=== PATIENT | male | born 1935 | race Caucasian/White ===

== ENCOUNTER 2018-08-29 13:59 | Emergency (ER) | payer MEDICARE ==
[2018-08-29 14:09] VITALS: BP 143/91
[2018-08-29] MEDS ORDERED: TETRACAINE 0.5% OPHTH DROPS 15 ML LEFTEYE STA (14:33)
[2018-08-29] MEDS ORDERED: TETRACAINE 0.5% OPHTH DROPS 4 ML LEFTEYE STA (14:38)
[2018-08-29] MEDS ORDERED: ERYTHROMYCIN OPHTH OINT 1 GM TUBE LEFTEYE STA (16:29)
--- NOTE | 2018-08-29 16:32 | ED Physician Documentation ---
PD HPI OPHTHO - Stated complaint Stated Complaint: LT EYE PX - Chief complaint Chief Complaint: Heent - History obtained from History obtained from: Patient, Family - History of Present Illness Timing - onset: How many hours ago (2) Timing - duration: Hours (2) Timing - details: Abrupt onset Severity Comments: moderate L eye redness, mild pain, aching Location: Left Quality / character: Aching. No: Itching, Burning, Throbbing Associated symptoms: Redness, Swelling. No: Tearing, Discharge, FB sensation, Photophobia, Double vision, Decreased vision, Loss of vision, Headache Contributing factors: Other (patient was hit in the left eye with a tree branch that he was cutting) Similar symptoms before: Other (has hx of macular degeneration, can barely see out of Left eye at baseline. Also hx of cataract surgery) Recently seen: Not recently seen - Treatment prior to arrival Treatment prior to arrival: none - Additional information Additional information: Dr. Santillan's office sent him to the ED Review of Systems Ten Systems: 10 systems reviewed and negative Constitutional: reports: Reviewed and negative Eyes: reports: Irritation. denies: Loss of vision, Decreased vision, Photophobia, Discharge Ears: reports: Reviewed and negative Nose: reports: Reviewed and negative Skin: reports: Reviewed and negative Neurologic: denies: Headache, Head injury, LOC PD PAST MEDICAL HISTORY - Past Medical History Past Medical History: Yes Cardiovascular: Hypertension Respiratory: None Endocrine/Autoimmune: HyPERthyroidism GI: None : None HEENT: Macular degeneration Psych: None Musculoskeletal: Other Derm: None - Past Surgical History Past Surgical History: Yes HEENT: Cataracts - Present Medications Home Medications: Ambulatory Orders Medication Instructions Recorded Confirmed RX: Levothyroxine Sodium 50 mcg PO QDAC 01/19/17 01/19/17 RX: Lisinopril/Hydrochlorothiazide 1 tab PO DAILY 01/19/17 01/19/17 [Lisinopril-Hctz 20-12.5 mg Tab] RX: Prednisone 5 mg PO QDBREAKFAST 01/19/17 01/19/17 RX: Sildenafil Citrate [Viagra] 100 mg PO PRN PRN 01/19/17 01/19/17 RX: Aspirin [Aspirin EC] 325 mg PO DAILY #10 tablet. 01/20/17 Areds Ii 08/29/18 Cholecalciferol (Vitamin D3) 1,000 unit PO 08/29/18 [Vitamin D3] RX: Ascorbic Acid [Vitamin C] 500 mg PO 08/29/18 RX: Atorvastatin [Lipitor] 40 mg PO QPM 08/29/18 RX: Flaxseed Oil 1,000 mg PO 08/29/18 08/29/18 - Allergies Allergies/Adverse Reactions: Allergies Allergy/AdvReac Type Severity Reaction Status Date / Time No Known Drug Allergies Allergy Verified 08/29/18 14:09 - Social History Does the pt smoke?: No Smoking Status: Never smoker Does the pt drink ETOH?: No Does the pt have substance abuse?: No PD ED PE NORMAL - Vitals Vital signs reviewed: Yes - General General: Alert and oriented X 3, No acute distress, Well developed/nourished - HEENT HEENT: Pharynx benign - Neck Neck: Supple, no meningeal sign - Cardiac Cardiac: RRR - Respiratory Respiratory: No respiratory distress - Abdomen Abdomen: Soft, Non tender, Non distended - Male Male : Deferred - Rectal Rectal: Deferred - Derm Derm: Normal color, Warm and dry, No rash - Extremities Extremities: No deformity - Neuro Neuro: Alert and oriented X 3, No motor deficit Eye Opening: Spontaneous Verbal: Oriented - Psych Psych: Normal mood, Normal affect PD ED PE EXPANDED - Eyes Eyes: EOMI, Left eye, Subconj hemorrhage (large), Corneal abrasion (mild left corneal abrasion, not central, inferior at 7 oclock on L eye ), Fluorescein uptake, Other (visual acuity normal in R eye, pt with severe macular degenration and poor baseline visual acuity in left eye thus unable to obtain reasonable acuity but pt can count fingers on the L and reports vision is baseline, IOP 18 bilaterally ). No: Eyelid injury, Eyelid swelling, Eyelid erythema Results - Vitals Vitals: Vital Signs - 24 hr 08/29/18 14:07 Temperature 36.8 C Heart Rate 84 Respiratory 18 Rate Blood Pressure 143/91 H O2 Saturation 96 Oxygen O2 Source Room air PD MEDICAL DECISION MAKING - ED course Complexity details: reviewed results, re-evaluated patient, considered differential, d/w patient, d/w family ED course: ddx - subconjunctival hemorrhage, corneal abrasion, globe rupture, iritis. 83 y/o M hit in L eye with tree branch. Has mild pain, large subconjunctival hemorrhage. Visual acuity difficult to obtain in L eye due to baseline severe macular degeneration but pt reports this is his normal. Negative seidels sign - no evidence of globe rupture IOp is 18 bilaterally with Schiotz. Injury happened too recently to have developed iritis. Small inferior corneal abrasion not central on L eye, given erythromycin. Pt to f/u with Dr. Santillan tomorrow in clinic. - Consults Consults: Consulted (name) (Dr. Santillan ophthalmology requested a tonopen measurement and visual acuity, will see pt in clinic tomorrow ) Departure - Departure Disposition: Home, Self Care Clinical Impression: Subconjunctival hemorrhage, Corneal abrasion, left Condition: Stable Record reviewed to determine appropriate education?: Yes Follow-Up: your, doctor [Other] Comments: You have a Left eye subconjunctival hemorrhage and a L eye corneal abrasion from your injury today. Your vision appears to be at baseline and your eye pressure was normal here today. Regardless you should follow up with Dr. Santillan's office tomorrow to recheck your eye. Take the antibiotics 4 time sa day and follow up with Dr. Santillan for further management. Discharge Date/Time: 08/29/18 16:35
== END 2018-08-29 16:35 | disposition home or self-care (01) ==
LOC: ED 13:59
DX: S05.02XA Injury of conjunctiva and corneal abrasion without foreign body, left eye, initial encounter (principal); H11.32 Conjunctival hemorrhage, left eye; W20.8XXA Other cause of strike by thrown, projected or falling object, initial encounter; Y93.H2 Activity, gardening and landscaping; H35.30 Unspecified macular degeneration; I10 Essential (primary) hypertension; Z79.899 Other long term (current) drug therapy; Z98.42 Cataract extraction status, left eye
CPT/HCPCS: 99282; 99283; J3490